=== PATIENT | male | born 1990 | race Caucasian/White ===

== ENCOUNTER 2019-04-09 11:14 | Day surgery (SDC) | payer MEDICAID ==
[2019-04-07 16:14] VITALS: BMI 29.8
[2019-04-09] MEDS ORDERED: LIDOCAINE 1% 20 ML VIAL (10MG/ML) FOR IV START INTRADERMA ONE (11:30)
[2019-04-09] MEDS ORDERED: LACTATED RINGERS 1,000 ML IV ONE (11:30)
[2019-04-09] MEDS ORDERED: LACTATED RINGERS 1,000 ML IV SCH (11:52)
[2019-04-09 11:55] VITALS: TEMP 98.3
[2019-04-09] MEDS ORDERED: LIDOCAINE 1% INJ 10MG/ML (20 ML MDV) ONE (12:12)
[2019-04-09] MEDS ORDERED: PROPOFOL 10 MG/ML 20 ML VIAL IV ONE (12:12)
--- NOTE | 2019-04-09 12:27 | P.PCN ---
Date of Procedure: 04/09/19 Procedure(s) Performed: BRIEF HISTORY: Patient is a 28-year-old, pleasant, 8 male, scheduled for an upper endoscopy as a part of evaluation of long-standing history of GERD and intermittent dysphagia to solids for the last 6 months duration. He was recently started on Prilosec 20 mg daily about 3 weeks ago and symptoms are gradually improving. Scheduled for an upper endoscopy with a possible dilation today.. PROCEDURE PERFORMED: Esophagogastroduodenoscopy with biopsy. PREOPERATIVE DIAGNOSIS: Long-standing history of GERD/intermittent dysphagia to solids for the last 6 months duration. IV sedation per anesthesia. PROCEDURE: After informed consent was obtained, the patient was brought into [facility] end[facility] unit. IV sedation was administered by Anesthesia under continuous monitoring. Initially the Olympus GIF-140 video endoscope was inserted into the mouth. Esophagus intubated without any difficulty. It was gradually advanced into the stomach and duodenum and carefully examined. The bulb and the second part of the duodenum appeared normal. The scope at this time was withdrawn to the stomach, adequately insufflated with air, and upon careful examination, mucosa of the antrum had patchy areas of erythema and scattered the erosions and biopsies were done from this area. The, body, cardia and the fundus appeared normal. The scope was then withdrawn into the esophagus. Small sliding Hiatal hernia noted. The GE junction was located at 41 cm from the incisors. There was a distal esophageal Schatzki's ring identified that was dilated using 15-18 mm TTS balloon in a sequential fashion for 90 seconds. There was a mucosal tear noted at the site of dilation. The esophagus appeared normal. There was some mild thickening of the folds noted in the distal esophagus and multiple biopsies were done from this area to rule out years of age esophagitis. There were no erosions or ulcerations seen and the patient tolerated the procedure well. IMPRESSION: 1. Distal esophageal Schatzki's ring status post balloon dilation using 15-18 mm TTS balloon in a sequential fashion as described above. 2. Mild antral gastritis. 3. Mild thickening of the distal esophageal folds status post multiple biopsies to rule out years of age esophagitis. RECOMMENDATIONS: The findings of this examination were discussed with the patient as well as his family. He was advised to follow with the biopsy results. He will remain on a clear liquid diet today. He will continue with omeprazole 20 mg daily and follow antireflux measures. He'll be seen in office in 2-3 weeks..
[2019-04-09 12:42] VITALS: RESP 16
[2019-04-09 12:52] VITALS: BP 118/76; PULSE 65
== END 2019-04-09 13:10 | disposition home or self-care (01) ==
LOC: ORWHC2ENDO 11:14
PROVIDERS: ATTEND Internal Medicine Gastroenterology
DX: K21.0 Gastro-esophageal reflux disease with esophagitis (principal); K29.50 Unspecified chronic gastritis without bleeding; K31.9 Disease of stomach and duodenum, unspecified; K44.9 Diaphragmatic hernia without obstruction or gangrene; K22.2 Esophageal obstruction; Z88.2 Allergy status to sulfonamides; Z79.899 Other long term (current) drug therapy
CPT/HCPCS: 88305; 43239; 43249; J2001; J2704; C1726

== ENCOUNTER → 2019-10-13 | Outpatient (CLI) | payer MEDICAID ==
[2019-10-13 12:09] LABS: Basophils # (A) 0.1 k/uL (0-0.2); Basophils % (A) 1 %; Eosinophils # (A) 0.4 k/uL (0-0.7); Eosinophils % (A) 5 %; HCT 47.9 % (39.0-53.0); HGB 15.1 gm/dL (13.0-17.5); Lymphocytes # (A) 3.3 k/uL (1.0-4.8); Lymphocytes % (A) 42 %; MCHC 31.5 g/dL (31.0-37.0); MCV 95.2 fL (80.0-100.0); Mean Platelet Volume 8.6; Monocytes # (A) 0.4 k/uL (0-1.0); Monocytes % (A) 6 %; Neutrophils # (A) 3.4 k/uL (1.3-7.7); Neutrophils % (A) 43 %; Platelet Count 230 k/uL (150-450); RBC 5.03 m/uL (4.30-5.90); RDW 12.4 % (11.5-15.5); WBC 7.8 k/uL (3.8-10.6)
[2019-10-13 19:00] LABS: African American GFR (CKD) 131.4 (60.0-200.0); Albumin 4.2 g/dL (3.80-4.90); Albumin/Globulin Ratio 1.91 (1.60-3.17); Anion Gap 6.1 mmol/L (4.00-12.00); BUN/Creat Ratio 16.67 Ratio (12.00-20.00); Calcium 9.6 mg/dL (8.7-10.3); Carbon Dioxide 28.9 mmol/L (21.6-31.8); Chol/HDL Ratio 3.65; Globulin 2.2 g/dL (1.6-3.3); LDL Cholesterol,Calculated 111.8 mg/dL (0.0-131.0); Non-African American GFR(CKD) 113.4 (60.0-200.0); Potassium 4.9 mmol/L (3.5-5.5); Total Bilirubin 0.4 mg/dL (0.2-1.2); Total Protein 6.4 g/dL (6.2-8.2); VLDL Calculation 15.2 mg/dL (5.00-40.00)
[2019-10-13 19:49] LABS: Hemoglobin A1C 5.7 % (4.0-6.0)
== END | disposition home or self-care (01) ==
LOC: LABWHC1 10:46
PROVIDERS: ATTEND Family Medicine
DX: Z00.00 Encounter for general adult medical examination without abnormal findings (principal)
CPT/HCPCS: 36415; 80053; 80061; 83036; 84443; 85025

== ENCOUNTER → 2023-10-22 | Outpatient (CLI) | payer MEDICAID | END | disposition home or self-care (01) | LOC: LABPRL 08:33 | PROVIDERS: ATTEND Internal Medicine | CPT/HCPCS: 80053; 80061; 82306; 83036; 84443; 85025 ==